=== PATIENT | female | born 1955 | race Caucasian/White ===

== ENCOUNTER 2017-12-25 23:29 | Emergency (ER) | payer OTHER ==
[~2017-12-25] VITALS: Ht 172.7 cm; Wt 75.9 kg
[~2017-12-25 23:29] MED LIST: ADVIL200 MG PO; B COMPLETE1 EACH PO; CALCIUM500 M4 PO; LO-DOSE ASPIRIN81 M2 PO; LOPRESSOR25 MG PO; OXYBUTYNIN CHLO10 MG PO; PRAVACHOL40 MG PO; TYLENOL EXTRA500 MG PO; VENLAFAXINE HCL75 M3 PO; calcium PO
[2017-12-26 01:49] VITALS: BP 156/98
== END 2017-12-26 01:49 | disposition home or self-care (01) ==
LOC: EME 23:29
DX: T78.49XA Other allergy, initial encounter (principal); X58.XXXA Exposure to other specified factors, initial encounter; Z87.891 Personal history of nicotine dependence
CPT/HCPCS: 99281; 99283; J1200